=== PATIENT | female | born 1980 | race Caucasian/White ===

== ENCOUNTER 2022-07-09 01:52 | Emergency (ER) | payer OTHER, BC ==
[~2022-07-09] VITALS: Ht 177.8 cm; Wt 81.6 kg
--- NOTE | 2022-07-09 02:01 | NUR ---
Patient to ER bed 4 to gown for evaluation. Side rails up. Report given to Summer GIFFORD(reg).
[2022-07-09 02:02] VITALS: BP_SYST 142
--- NOTE | 2022-07-09 02:05 | NUR ---
Dr. Ray at bedside examining the patient.
[2022-07-09] MEDS ORDERED: MORPHINE 4 MG INJ. 4 MG/ML VIAL IM ONE (02:15)
--- NOTE | 2022-07-09 02:20 | NUR ---
Unable to provide urine specimen at this time.
--- NOTE | 2022-07-09 02:37 | NUR ---
Patient is sleeping comfortably in bed. Still unable to provide urine sample.
--- NOTE | 2022-07-09 02:55 | NUR ---
Patient started screaming in pain. Found her sitting up on the edge of the bed screaming that her back hurts. Instructed her to scoot back up in bed, patient able to follow instructions.
--- NOTE | 2022-07-09 03:16 | NUR ---
Patient is sleeping comfortably on her right side in bed. No acute respiratory distress noted at this time.
[2022-07-09] MEDS ORDERED: IBUP-1969 PO (03:29)
[2022-07-09] MEDS ORDERED: HYDR-3917 PO (03:29)
[2022-07-09] MEDS ORDERED: TRAM50TA2 PO (03:30)
--- NOTE | 2022-07-09 03:45 | NUR ---
Patient is sleeping comfortably in bed, respirations even and unlabored and no acute distress noted.
--- NOTE | 2022-07-09 03:51 | NUR ---
Called Abner, patient's boyfriend, at [phone] no answer.
--- NOTE | 2022-07-09 03:54 | NUR ---
Called Abner, patient's boyfriend, at [phone] no answer, left a message to call us back.
[2022-07-09] MEDS ORDERED: KETOROLAC TROMETHAMINE 60 MG/2 ML VIAL IM ONE (05:45)
--- NOTE | 2022-07-09 05:54 | NUR ---
Patient is comfortably sleeping in bed, respirations even and unlabored, and no acute distress noted.
--- NOTE | 2022-07-09 06:15 | NUR ---
Assisted patient with the bedpan. Able to tolerate the activity. Informed her that we are still not able to contact her caregiver.
--- NOTE | 2022-07-09 06:22 | NUR ---
Patient started vomiting. Notified Dr. Alexis Malhotra ODT order obtained.
[2022-07-09] MEDS ORDERED: ONDANSETRON 4 MG ODT TAB PO ONE (06:30)
[2022-07-09 06:53] VITALS: BP_SYST 138
--- NOTE | 2022-07-09 06:55 | NUR ---
Patient given written and verbal discharge instructions and verbalizes understanding. ER MD discussed with patient the results and treatment provided. Patient in stable condition. ID arm band removed. NO Rx given. Patient educated on pain management and to follow up with PMD. Pain Scale 0/10. Opportunity for questions provided and answered. Medication side effect fact sheet provided.
== END 2022-07-09 06:55 | disposition home or self-care (01) ==
LOC: SED 01:52
DX: M54.50 Low back pain, unspecified (principal); G89.29 Other chronic pain; E11.9 Type 2 diabetes mellitus without complications; Z79.899 Other long term (current) drug therapy
CPT/HCPCS: 99284; 82962; 81025; 96372; Q0162; J1885; J2270